=== PATIENT | male | born 1975 | race Caucasian/White ===

== ENCOUNTER 2018-10-06 16:57 | Emergency (ER) | payer BC ==
[2018-10-06] MEDS: AZITHROMYCIN 500 MG TAB PO (18:53)
[2018-10-06] MEDS: CEFTRIAXONE 250 MG INJ IM (18:53)
[2018-10-06 20:20] LABS: ADD UMIC NO; UR ASCORBIC ACID NEGATIVE (NEGATIVE); UR BILIRUBIN (Dip) NEGATIVE (NEGATIVE); UR BLOOD (Dip) NEGATIVE (NEGATIVE); UR CLARITY CLEAR (CLEAR); UR COLOR YELLOW (YELLOW); UR GLUCOSE (Dip) NEGATIVE (NEGATIVE); UR KETONES (Dip) NEGATIVE (NEGATIVE); UR LEUKOCYTE ESTERASE (Dip) NEGATIVE Leu/ul (NEGATIVE); UR NITRITE (Dip) NEGATIVE (NEGATIVE); UR SPECIFIC GRAVITY (Dip) 1.019 (1.003-1.030); UR TOTAL PROTEIN (Dip) NEGATIVE (NEGATIVE); UR UROBILINOGEN (Dip) NEGATIVE (NEGATIVE)
== END 2018-10-06 20:28 | disposition home or self-care (01) ==
LOC: FTE 16:57
DX: N45.1 Epididymitis (principal)
CPT/HCPCS: 76870; 81003; 87591; 96372; 99285-25